=== PATIENT | female | born 1990 | race Caucasian/White ===

== ENCOUNTER 2016-04-08 12:46 | Emergency (ER) | payer OTHER ==
[~2016-04-08 12:46] MED LIST: DOCU10CA PO; IBUP80TA PO; PERCOCET PO
--- NOTE | 2016-04-08 15:12 | EDDOCDS ---
Nurse's Notes [facility] Name: Radha Welsh Age: 26 yrs Sex: Female : 1990 Arrival Date: 04/08/2016 Time: 12:46 Bed I2 / M2 Private MD: Gary Sweeney E Diagnosis: Dehydration;Dizziness and giddiness;Jaw pain-post dental extraction Presentation: 04/08 12:49 Presenting complaint: Patient states: Had wisdom teeth removal 2 days ago. not rs3 drinking/eating enough because of pain. almost passed out yesterday. stopped taking hydrocodone. taking Motrin with pain relief. reports of generalized weakness. The last date and time the patient was known to be well was was at an unknown time on an unknown date. No acute neurological deficit is noted. Pre-hospital glucose is not applicable to this patient. Adult Sepsis Screening: The patient does not have new or worsening altered mentation. Patient's respiratory rate is less than 22. Systolic blood pressure is greater than 100. Patient has a qSOFA score of 0- Negative Sepsis Screen. Suicide/Homicide risk assessment- the patient denies having any suicidal and/or homicidal ideations and does not present with any other emotional, behavioral or mental health complaints. Status: The patient is a dependent. Transition of care: patient was not received from another setting of care. 12:49 Acuity: JANIS Level 4 rs3 12:49 Method Of Arrival: Walkin/Carried/Asstd rs3 Triage Assessment: 12:52 The onset of the patients symptoms was at an unknown time. General: Appears in no rs3 apparent distress. Pain: Location: mouth. Pt Declines HIV testing. Neurological: Level of Consciousness is awake, alert, Reports no additional symptoms. 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 BCP Oral 1 tab once daily - PMHx: none; - PSHx: ; - Social history: Smoking status: Patient states was never smoker of tobacco. No barriers to communication noted, The patient speaks fluent Armenian. - Family history: Not pertinent. - : The pt / caregiver states he / she is not on anticoagulants. Home medication list is obtained from the patient. - Exposure Risk Screening:: None identified. Screenin:41 Screening information is obtained from the patient. Fall risk: No risks identified. kr3 Assistance ADL's: requires no assistance with activities of daily living. Abuse/DV Screen: The patient / caregiver reports he/she is: not in a situation that causes fear, pain or injury. Nutritional screening: No deficits noted. Advance Directives: Currently, there is no health care proxy. home support is adequate. Assessment: 13:42 Reassessment: Patient appears in no apparent distress at this time. Reassessment: kr3 orthostatic vital signs obtained with no difficulty or complaints from patient. Neurological: Level of Consciousness is awake, alert, Moves all extremities. Reports dizziness. Respiratory: Respiratory effort is even, unlabored. Derm: Skin is normal. 15:11 Reassessment: Patient appears in no apparent distress at this time. Patient states kr3 feeling better. eating bread. Vital Signs: 12:48 BP 144 / 79; Pulse 61; Resp 16; Temp 96.6(T); Pulse Ox 99% on R/A; Weight 56.7 kg (R); lr2 Height 5 ft. 9 in. (175.26 cm) (R); 13:41 BP 129 / 82 Supine; Pulse 72; Pulse Ox 100% on R/A; kr3 13:41 BP 133 / 88 Sitting; Pulse 78; Pulse Ox 100% on R/A; kr3 13:41 BP 128 / 88; Pulse 74; Pulse Ox 98% on R/A; kr3 15:10 BP 143 / 96; Pulse 78; Resp 16; Temp 98.9(O); Pulse Ox 98% on R/A; Pain 4/10; kr3 12:48 Body Mass Index 18.46 (56.70 kg, 175.26 cm) lr2 Vitals: 12:48 Log In Time: April 08, 2016 at 12:46. lr2 12:52 Glucose Measurement D-stick deferred by provider. rs3 ED Course: 12:48 Patient visited by Maris Funez. lr2 12:48 Gary Sweeney is Private Physician. lr2 12:48 Patient moved to Waiting lr2 12:48 Patient moved to Pre RCE lr2 12:51 Triage Initiated rs3 13:22 [facility] ar2 13:22 Jeff Butt MD is Attending Physician. ar2 13:22 Patient visited by Allan Miguel PA-C. ar2 13:22 Patient moved to Triage 2 ck1 13:30 Patient moved to I2 / M2 ck1 13:41 Inserted saline lock: 20 gauge in right antecubital area The patient tolerated the kr3 procedure well. 13:43 The patient / caregiver is instructed regarding the plan of care and ED course. Patient kr3 has correct armband on for positive identification. Bed in low position. Call light in reach. Side rails up X 1. 13:43 No procedures done that require assistance. kr3 14:33 Patient visited by Esther Brock RN. mk4 14:46 [facility] Payment Agreement was scanned into [employer] and attached to record. mm15 15:11 Discontinued lock intact, bleeding controlled, pressure dressing applied, No kr3 redness/swelling at site. Administered Medications: 13:41 Drug: NS 0.9% 1000 ml [sodium chloride 0.9 % intravenous solution] Route: IV; Rate: kr3 bolus; Site: right antecubital; 15:10 Follow up: IV Status: Completed infusion; IV Intake: 1000ml kr3 Intake: 15:10 IV: 1000.00ml; Total: 1000.00ml. kr3 Order Results: There are currently no results for this order. Outcome: 13:43 No special radiology studies were completed. kr3 15:03 Discharge ordered by Provider. ar2 15:10 Discharge Assessment: patient administered narcotics - no. The following High Risk kr3 Discharge criteria are identified: None. Discharged to home ambulatory, with friend. Condition: stable. Discharge instructions given to patient, Instructed on discharge instructions, follow up and referral plans. Demonstrated understanding of instructions, Pt was receptive of discharge instructions/ teaching. Property sent home with patient. 15:11 Patient left the ED. kr3 Signatures: Xiomara LongRN RN ck1 Mariana CifuentesRN RN kr3 Allan Miguel PA-C PA-C ar2 Nusrat Perkins,RN RN rs3 Jannet Virk mm15 Esther Brock, ROBERTO RN mk4 Maris Funez lr2 MTDD
--- NOTE | 2016-04-08 15:12 | EDDOCDS ---
Physician Documentation [facility] Name: Radha Welsh Age: 26 yrs Sex: Female : 1990 Arrival Date: 04/08/2016 Time: 12:46 Bed I2 / M2 Private MD: Gary Sweeney E Disposition: 04/08/16 15:03 Discharged to Home/Self Care. Impression: Dehydration, Dizziness and giddiness, Jaw pain - post dental extraction. - Condition is Stable. - Discharge Instructions: Dental Extraction, Care After. - Medication Reconciliation, Local Pharmacy Hours form. - Follow up: Private Physician; When: Call to arrange an appointment; Reason: Recheck today's complaints, Continuance of care. Follow up: Emergency Department; When: As needed; Reason: Worsening of conditions. - Problem is new. - Symptoms have improved. Historical: - Allergies: no known allergies; - Home Meds: 1. BCP Oral 1 tab once daily - PMHx: none; - PSHx: ; - Social history: Smoking status: Patient states was never smoker of tobacco. No barriers to communication noted, The patient speaks fluent Luxembourgish. - Family history: Not pertinent. - : The pt / caregiver states he / she is not on anticoagulants. Home medication list is obtained from the patient. - Exposure Risk Screening:: None identified. 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 9 in. (175.26 cm) (R); 13:41 BP 129 / 82 Supine; Pulse 72; Pulse Ox 100% on R/A; kr3 13:41 BP 133 / 88 Sitting; Pulse 78; Pulse Ox 100% on R/A; kr3 13:41 BP 128 / 88; Pulse 74; Pulse Ox 98% on R/A; kr3 15:10 BP 143 / 96; Pulse 78; Resp 16; Temp 98.9(O); Pulse Ox 98% on R/A; Pain 4/10; kr3 12:48 Body Mass Index 18.46 (56.70 kg, 175.26 cm) lr2 MDM: 13:30 IV Saline Lock ordered. ar2 13:30 Orthostatic VS ordered. ar2 13:30 NS 0.9% 1000 ml IV at bolus once ordered. ar2 14:30 Financial registration complete. mm15 14:46 [facility] Payment Agreement was scanned into [employer] and attached to record. mm15 Administered Medications: 13:41 Drug: NS 0.9% 1000 ml [sodium chloride 0.9 % intravenous solution] Route: IV; Rate: kr3 bolus; Site: right antecubital; 15:10 Follow up: IV Status: Completed infusion; IV Intake: 1000ml kr3 Signatures: Mariana Cifuentes RN RN kr3 Allan Miguel PA-C PA-C ar2 Nusrat PerkinsRN RN rs3 Jannet Virk mm15 The chart was reviewed and I authenticate all verbal orders and agree with the evaluation and treatment provided.Attachments: 14:46 [facility] Payment Agreement mm15 MTDD
--- NOTE | 2016-04-10 16:12 | EDDOCDS ---
Physician Documentation [facility] Name: Radha Welsh Age: 26 yrs Sex: Female : 1990 Arrival Date: 04/08/2016 Time: 12:46 Bed I2 / M2 Private MD: Gary Sweeney E Disposition: 04/08/16 15:03 Discharged to Home/Self Care. Impression: Dehydration, Dizziness and giddiness, Jaw pain - post dental extraction. - Condition is Stable. - Discharge Instructions: Dental Extraction, Care After. - Medication Reconciliation, Local Pharmacy Hours form. - Follow up: Private Physician; When: Call to arrange an appointment; Reason: Recheck today's complaints, Continuance of care. Follow up: Emergency Department; When: As needed; Reason: Worsening of conditions. - Problem is new. - Symptoms have improved. Historical: - Allergies: no known allergies; - Home Meds: 1. BCP Oral 1 tab once daily - PMHx: none; - PSHx: ; - Social history: Smoking status: Patient states was never smoker of tobacco. No barriers to communication noted, The patient speaks fluent Urdu. - Family history: Not pertinent. - : The pt / caregiver states he / she is not on anticoagulants. Home medication list is obtained from the patient. - Exposure Risk Screening:: None identified. 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 9 in. (175.26 cm) (R); 13:41 BP 129 / 82 Supine; Pulse 72; Pulse Ox 100% on R/A; kr3 13:41 BP 133 / 88 Sitting; Pulse 78; Pulse Ox 100% on R/A; kr3 13:41 BP 128 / 88; Pulse 74; Pulse Ox 98% on R/A; kr3 15:10 BP 143 / 96; Pulse 78; Resp 16; Temp 98.9(O); Pulse Ox 98% on R/A; Pain 4/10; kr3 12:48 Body Mass Index 18.46 (56.70 kg, 175.26 cm) lr2 MDM: 13:30 IV Saline Lock ordered. ar2 13:30 Orthostatic VS ordered. ar2 13:30 NS 0.9% 1000 ml IV at bolus once ordered. ar2 14:30 Financial registration complete. mm15 14:46 [facility] Payment Agreement was scanned into [employer] and attached to record. mm15 04/09 10:25 T-Sheet-- Draft Copy was scanned into [employer] and attached to record. gb Administered Medications: 04/08 13:41 Drug: NS 0.9% 1000 ml [sodium chloride 0.9 % intravenous solution] Route: IV; Rate: kr3 bolus; Site: right antecubital; 15:10 Follow up: IV Status: Completed infusion; IV Intake: 1000ml kr3 Signatures: Ariana Crane, Mariana YoungRN RN kr3 Allan Miguel PA-C PA-C ar2 Nusrat Perkins RN RN rs3 Jannet Virk mm15 The chart was reviewed and I authenticate all verbal orders and agree with the evaluation and treatment provided.Attachments: 14:46 [facility] Payment Agreement mm15 04/09 10:25 T-Sheet-- Draft Copy gb Chart Complete MTDD
--- NOTE | 2016-04-10 16:12 | EDDOCDS ---
Physician Documentation [facility] Name: Radha Welsh Age: 26 yrs Sex: Female : 1990 Arrival Date: 04/08/2016 Time: 12:46 Bed I2 / M2 Private MD: Gary Sweeney E Disposition: 04/08/16 15:03 Discharged to Home/Self Care. Impression: Dehydration, Dizziness and giddiness, Jaw pain - post dental extraction. - Condition is Stable. - Discharge Instructions: Dental Extraction, Care After. - Medication Reconciliation, Local Pharmacy Hours form. - Follow up: Private Physician; When: Call to arrange an appointment; Reason: Recheck today's complaints, Continuance of care. Follow up: Emergency Department; When: As needed; Reason: Worsening of conditions. - Problem is new. - Symptoms have improved. Historical: - Allergies: no known allergies; - Home Meds: 1. BCP Oral 1 tab once daily - PMHx: none; - PSHx: ; - Social history: Smoking status: Patient states was never smoker of tobacco. No barriers to communication noted, The patient speaks fluent Urdu. - Family history: Not pertinent. - : The pt / caregiver states he / she is not on anticoagulants. Home medication list is obtained from the patient. - Exposure Risk Screening:: None identified. 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 9 in. (175.26 cm) (R); 13:41 BP 129 / 82 Supine; Pulse 72; Pulse Ox 100% on R/A; kr3 13:41 BP 133 / 88 Sitting; Pulse 78; Pulse Ox 100% on R/A; kr3 13:41 BP 128 / 88; Pulse 74; Pulse Ox 98% on R/A; kr3 15:10 BP 143 / 96; Pulse 78; Resp 16; Temp 98.9(O); Pulse Ox 98% on R/A; Pain 4/10; kr3 12:48 Body Mass Index 18.46 (56.70 kg, 175.26 cm) lr2 MDM: 13:30 IV Saline Lock ordered. ar2 13:30 Orthostatic VS ordered. ar2 13:30 NS 0.9% 1000 ml IV at bolus once ordered. ar2 14:30 Financial registration complete. mm15 14:46 [facility] Payment Agreement was scanned into [employer] and attached to record. mm15 04/09 10:25 T-Sheet-- Draft Copy was scanned into [employer] and attached to record. gb Administered Medications: 04/08 13:41 Drug: NS 0.9% 1000 ml [sodium chloride 0.9 % intravenous solution] Route: IV; Rate: kr3 bolus; Site: right antecubital; 15:10 Follow up: IV Status: Completed infusion; IV Intake: 1000ml kr3 Signatures: Ariana Crane, Mariana YoungRN RN kr3 Allan Miguel PA-C PA-C ar2 Nusrat Perkins RN RN rs3 Jannet Virk mm15 The chart was reviewed and I authenticate all verbal orders and agree with the evaluation and treatment provided.Attachments: 14:46 [facility] Payment Agreement mm15 04/09 10:25 T-Sheet-- Draft Copy gb Chart Complete MTDD
--- NOTE | 2016-04-10 16:12 | EDDOCDS ---
Nurse's Notes [facility] Name: Radha Welsh Age: 26 yrs Sex: Female : 1990 Arrival Date: 04/08/2016 Time: 12:46 Bed I2 / M2 Private MD: Gary Sweeney E Diagnosis: Dehydration;Dizziness and giddiness;Jaw pain-post dental extraction Presentation: 04/08 12:49 Presenting complaint: Patient states: Had wisdom teeth removal 2 days ago. not rs3 drinking/eating enough because of pain. almost passed out yesterday. stopped taking hydrocodone. taking Motrin with pain relief. reports of generalized weakness. The last date and time the patient was known to be well was was at an unknown time on an unknown date. No acute neurological deficit is noted. Pre-hospital glucose is not applicable to this patient. Adult Sepsis Screening: The patient does not have new or worsening altered mentation. Patient's respiratory rate is less than 22. Systolic blood pressure is greater than 100. Patient has a qSOFA score of 0- Negative Sepsis Screen. Suicide/Homicide risk assessment- the patient denies having any suicidal and/or homicidal ideations and does not present with any other emotional, behavioral or mental health complaints. Status: The patient is a dependent. Transition of care: patient was not received from another setting of care. 12:49 Acuity: JANIS Level 4 rs3 12:49 Method Of Arrival: Walkin/Carried/Asstd rs3 Triage Assessment: 12:52 The onset of the patients symptoms was at an unknown time. General: Appears in no rs3 apparent distress. Pain: Location: mouth. Pt Declines HIV testing. Neurological: Level of Consciousness is awake, alert, Reports no additional symptoms. 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 BCP Oral 1 tab once daily - PMHx: none; - PSHx: ; - Social history: Smoking status: Patient states was never smoker of tobacco. No barriers to communication noted, The patient speaks fluent Danish. - Family history: Not pertinent. - : The pt / caregiver states he / she is not on anticoagulants. Home medication list is obtained from the patient. - Exposure Risk Screening:: None identified. Screenin:41 Screening information is obtained from the patient. Fall risk: No risks identified. kr3 Assistance ADL's: requires no assistance with activities of daily living. Abuse/DV Screen: The patient / caregiver reports he/she is: not in a situation that causes fear, pain or injury. Nutritional screening: No deficits noted. Advance Directives: Currently, there is no health care proxy. home support is adequate. Assessment: 13:42 Reassessment: Patient appears in no apparent distress at this time. Reassessment: kr3 orthostatic vital signs obtained with no difficulty or complaints from patient. Neurological: Level of Consciousness is awake, alert, Moves all extremities. Reports dizziness. Respiratory: Respiratory effort is even, unlabored. Derm: Skin is normal. 15:11 Reassessment: Patient appears in no apparent distress at this time. Patient states kr3 feeling better. eating bread. Vital Signs: 12:48 BP 144 / 79; Pulse 61; Resp 16; Temp 96.6(T); Pulse Ox 99% on R/A; Weight 56.7 kg (R); lr2 Height 5 ft. 9 in. (175.26 cm) (R); 13:41 BP 129 / 82 Supine; Pulse 72; Pulse Ox 100% on R/A; kr3 13:41 BP 133 / 88 Sitting; Pulse 78; Pulse Ox 100% on R/A; kr3 13:41 BP 128 / 88; Pulse 74; Pulse Ox 98% on R/A; kr3 15:10 BP 143 / 96; Pulse 78; Resp 16; Temp 98.9(O); Pulse Ox 98% on R/A; Pain 4/10; kr3 12:48 Body Mass Index 18.46 (56.70 kg, 175.26 cm) lr2 Vitals: 12:48 Log In Time: April 08, 2016 at 12:46. lr2 12:52 Glucose Measurement D-stick deferred by provider. rs3 ED Course: 12:48 Patient visited by Maris Funez. lr2 12:48 Gary Sweeney is Private Physician. lr2 12:48 Patient moved to Waiting lr2 12:48 Patient moved to Pre RCE lr2 12:51 Triage Initiated rs3 13:22 [facility] ar2 13:22 Jeff Butt MD is Attending Physician. ar2 13:22 Patient visited by Allan Miguel PA-C. ar2 13:22 Patient moved to Triage 2 ck1 13:30 Patient moved to I2 / M2 ck1 13:41 Inserted saline lock: 20 gauge in right antecubital area The patient tolerated the kr3 procedure well. 13:43 The patient / caregiver is instructed regarding the plan of care and ED course. Patient kr3 has correct armband on for positive identification. Bed in low position. Call light in reach. Side rails up X 1. 13:43 No procedures done that require assistance. kr3 14:33 Patient visited by Esther Brock RN. mk4 14:46 [facility] Payment Agreement was scanned into [employer] and attached to record. mm15 15:11 Discontinued lock intact, bleeding controlled, pressure dressing applied, No kr3 redness/swelling at site. 02 10:25 T-Sheet-- Draft Copy was scanned into [employer] and attached to record. gb Administered Medications: 04/08 13:41 Drug: NS 0.9% 1000 ml [sodium chloride 0.9 % intravenous solution] Route: IV; Rate: kr3 bolus; Site: right antecubital; 15:10 Follow up: IV Status: Completed infusion; IV Intake: 1000ml kr3 Intake: 15:10 IV: 1000.00ml; Total: 1000.00ml. kr3 Order Results: There are currently no results for this order. Outcome: 13:43 No special radiology studies were completed. kr3 15:03 Discharge ordered by Provider. ar2 15:10 Discharge Assessment: patient administered narcotics - no. The following High Risk kr3 Discharge criteria are identified: None. Discharged to home ambulatory, with friend. Condition: stable. Discharge instructions given to patient, Instructed on discharge instructions, follow up and referral plans. Demonstrated understanding of instructions, Pt was receptive of discharge instructions/ teaching. Property sent home with patient. 15:11 Patient left the ED. kr3 Signatures: Ariana Crane, Noah Reg Xiomara DietrichRN RN ck1 Mariana Cifuentes RN RN kr3 Allan Miguel PA-C PA-C ar2 Nusrat Perkins RN RN rs3 Jannet Virk mm15 Esther Brock RN RN mk4 Maris Funez lr2 Chart Complete MTDD
== END 2016-04-08 15:11 | disposition home or self-care (01) ==
LOC: M ED 12:46
DX: E86.0 Dehydration (principal); R68.84 Jaw pain; Z79.3 Long term (current) use of hormonal contraceptives